=== PATIENT | female | born 1960 ===

== ENCOUNTER 2018-04-14 19:43 | Emergency (ER) | payer SELFPAY ==
--- NOTE | 2018-04-14 20:21 | C.PDOC ---
History Of Present Illness 57 year old female presents to the ED complaining of headache and generalized body aches. Also complains of right shoulder pain. Denies any recent trauma or falls. Denies any chest pain, shortness of breath, fever, chills, nausea, vomiting, diarrhea, back pain, or any other symptoms. 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 Denies any sick contacts or recent travels. Daughter present as the employment programs analyst. Time Seen by Provider: 04/14/18 20:00 Chief Complaint (Nursing): Dizziness/Lightheaded History Per: Patient, Family (daughter) History/Exam Limitations: no limitations Onset/Duration Of Symptoms: Days (1) Current Symptoms Are (Timing): Still Present Past Medical History Reviewed: Historical Data, Nursing Documentation, Vital Signs Vital Signs: Last Vital Signs Temp 98.1 F 04/14/18 19:50 Pulse 90 04/14/18 19:50 Resp 18 04/14/18 19:50 BP 150/85 04/14/18 19:50 Pulse Ox 100 04/14/18 19:50 - Medical History PMH: No Chronic Diseases Surgical History: No Surg Hx Family History: States: No Known Family Hx - Social History Hx Alcohol Use: No Hx Substance Use: No - Immunization History Hx Tetanus Toxoid Vaccination: No Hx Influenza Vaccination: No Hx Pneumococcal Vaccination: No Review Of Systems Except As Marked, All Systems Reviewed And Found Negative. Constitutional: Positive for: Other (generalized body aches). Negative for: Fever, Chills Cardiovascular: Negative for: Chest Pain Respiratory: Negative for: Shortness of Breath Gastrointestinal: Negative for: Vomiting, Diarrhea, Constipation Genitourinary: Negative for: Dysuria, Hematuria Neurological: Negative for: Weakness, Numbness Physical Exam - Physical Exam Additional Physical Exam Comments: General- Non-toxic, Generalized body aches. Head- Normocephalic, Atraumatic Eyes- PERRL, EOMI, other (Conjunctiva clear) Mucosa- Moist Chest- Symmetrical Cardiovascular: Rhythm Regular, No murmur, (Normal S1, S2) Resp- no wheezing, rales, or rhonchi, (Good air movement, Lungs CTA bilaterally) Abd- Soft. Nontender. No distension. No guarding, no rebound Ext: mild right shoulder tenderness. Full ROM. Atraumatic, normal color and temperature. no cyanosis or edema) DP pulses 2+ Neuro- Oriented x3, GCS 15, CN 2-12 intact, normal sensation, normal motor (5/5 muscle strength) Gait: steady ED Course And Treatment ECG: Interpreted By Me, Viewed By Me ECG Interpretation: No Acute Changes Interpretation Of ECG: normal intervals, normal axis, no ST elevations or depression. Nonspecific T wave changes. No ischemia. Rate From EC O2 Sat by Pulse Oximetry: 100 (RA) Pulse Ox Interpretation: Normal Medical Decision Making Medical Decision Making: Discussed results with patient, informed the patient the results of her flu which was negative. Patient states she is feeling better will be D/C home with motrin and will take it home. Patient's daughter was translating for patient and states there are no questions and will follow up with PMD. Disposition - Disposition Referrals: Garrett Alexnadre MD [Primary Care Provider] - Disposition: HOME/ ROUTINE Disposition Time: 21:46 Condition: IMPROVED Additional Instructions: MAURIZIO MAN, thank you for letting us take care of you today. Your provider was Fransisca Waters MD and you were treated for WEAK/BODY PAINS/HEAD PAIN. The emergency medical care you received today was directed at your acute symptoms. If you were prescribed any medication, please fill it and take as directed. It may take several days for your symptoms to resolve. Return to the Emergency Department if your symptoms worsen, do not improve, or if you have any other problems. Please contact your doctor for a follow up appointment in 2-3 days. or call one of the physicians/clinics you have been referred to that are listed on the Patient Visit Information form that is included in your discharge packet. Bring any paperwork you were given at discharge with you along with any medications you are taking to your follow up visit. Our treatment cannot replace ongoing medical care by a primary care provider outside of the emergency department. Thank you for allowing the [facility] team to be part of your care today. Instructions: Muscle and Bone Pain (DC) Forms: [employer] (Ecuadorean) - POA Present On Arrival: None - Clinical Impression Clinical Impression: Musculoskeletal pain - Scribe Statement The provider has reviewed the documentation as recorded by the Joyaibe Jackie Smith All medical record entries made by the Scribe were at my direction and personally dictated by me. I have reviewed the chart and agree that the record accurately reflects my personal performance of the history, physical exam, medical decision making, and the department course for this patient. I have also personally directed, reviewed, and agree with the discharge instructions and disposition.
[2018-04-14 21:51] VITALS: BP 134/84; PULSE 78; RESP 16; TEMP 98; O2SAT 98
--- NOTE | 2018-04-16 17:53 | CARD ---
APPROVED REPORT Date of service: 04/14/2018 EKG Measurement Heart [id number] <Conclusion> Normal sinus rhythm Non-specific ST-T changes. Abnormal ECG
== END 2018-04-14 21:52 | disposition home or self-care (01) ==
LOC: SUPCPDRO 19:43 → C.ER 19:43
DX: M79.18 Myalgia, other site (principal)